=== PATIENT | female | born 1995 | race Caucasian/White ===

== ENCOUNTER 2021-05-17 20:30 | Emergency (ER) | payer OTHER ==
[~2021-05-17] VITALS: Ht 160 cm; Wt 95.3 kg
[2021-05-17 20:35] VITALS: BP 121/63
== END 2021-05-17 23:23 | disposition left against medical advice (07) ==
LOC: M.ERS 20:30
DX: T78.40XA Allergy, unspecified, initial encounter (principal); Z53.21 Procedure and treatment not carried out due to patient leaving prior to being seen by health care provider